=== PATIENT | male | born 1965 | race Caucasian/White ===

== ENCOUNTER 2025-04-23 19:21 | Emergency (ER) | payer OTHER, SELFPAY ==
[2025-04-23 19:38] VITALS: BP 134/88
[2025-04-23 20:02] VITALS: BP 135/89
--- NOTE | 2025-04-23 20:08 | ED.GENMED ---
History of Present Illness
General
Chief Complaint: Chest Pain
Source: patient
Exam Limitations: none
Time Seen by Provider: 04/23/25 20:07
History of Present Illness
History of Present Illness:
Patient went outside to walk his dog at about 6 or 630. Developed some upper chest discomfort. He then took trash out. Upon returning felt lightheaded. Chest discomfort remained minimal. Some heaviness of his shoulders. Total length of time
about 30 minutes. No diaphoresis no shortness of breath. Currently asymptomatic. No history of same. Patient plays golf does a fair amount of walking with his golf played golf multiple times recently without issue
Past History
Past History
ED Past Medical History: NIDDM
ED Past Surgical History: Orthopedic and Other (Posttraumatic splenectomy)
Review of Systems
Review of Systems
All Other Systems: Not applicable
Constitutional: Denies fever or chills
Respiratory: Denies cough
ABD/GI: Reports no symptoms
Phy Exam
Physical Exam
Physical Exam:
GENERAL: Alert and oriented in no apparent distress
EYE: Orbits normal.
NECK: Supple, no significant adenopathy.
ENT: Pharynx without erythema
CARDIAC: Regular rate and rhythm without any obvious murmurs.
LUNGS: Clear breath sounds,normal
ABDOMEN: Soft, without focal tenderness or distention
NEUROLOGICAL: Alert and oriented , grossly non-focal
SKIN: Warm and dry, no rash or lesion, no discoloration, skin intact.
MUSCULOSKELETAL: No edema,no deformity.Good color
PSYCH: Normal and appropriate interaction.
Scores
Heart Score for Chest Pain Patients
STEMI patient?: No
History: Moderately Suspicious
ECG: Normal
Age: >45 - <65 years
Risk Factors: 1 or 2 Risk Factors
Troponin: </= Normal Limit
Heart Score for Chest Pain Patients: 3
Heart Score Risk: 2.5% MACE over next 6 weeks
Course
Orders/Labs/Results
Orders:
Orders
04/23/25 19:23
EKG [Electrocardiogram (*1)] Urgent
Reason for Study: Chest Pain
EKG- Treatment ONCE
04/23/25 20:18
CT Chest Angio W/wo Iv Contras Urgent
Comment:
Reason For Exam: Chest pain radiating to back
Cardiac Monitoring- Treatment ONCE
IV Insert/Care/Rem.- Treatment PRN
0.9% Sodium Chloride 500 ml [Nss] 500 ml IV BOLUS
Pulse Ox/cont/shift [RESP] Stat
Quantity: 1
04/23/25 20:34
Basic Metabolic Panel Urgent
Complete Blood Count/With Diff Urgent
Troponin I Urgent
04/23/25 23:04
Electrocardiogram (*1) Stat
Reason for Study: Other
Other Reason for Exam: chest pain
EKG- Treatment ONCE
04/23/25 23:16
Troponin I Urgent
Abnormal Lab Results
04/23/25
20:34
MCV 94.8 H fL
(80.0-94.0)
MCH 33.7 H pg
(27.0-31.0)
Absolute Lymphs (auto) 4.2 H 10^3/uL
(1.2-3.4)
Absolute Monos (auto) 1.1 H 10^3/uL
(0.1-0.6)
Monocytes % 10.4 H %
(1.7-9.3)
Glucose 151 H mg/dl
(70-99)
04/23/25 20:34
04/23/25 20:34
Vital Signs
Initial and Last Documented VS:
Initial Vital Signs
Temp Pulse Resp BP Pulse Ox
97.7 F 74 20 134/88 95
04/23/25 19:38 04/23/25 19:38 04/23/25 19:38 04/23/25 19:38 04/23/25 19:38
Last Documented Vital Signs
Temp Pulse Resp BP Pulse Ox
97.8 F 74 17 139/99 94
04/23/25 20:09 04/24/25 00:00 04/24/25 00:00 04/23/25 22:00 04/24/25 00:00
MDM/Problems Addressed
Differential Diagnosis Includes:
1 episode of almost nonexertional chest discomfort with a episode of lightheadedness while walking lately to the [employer] can. Currently asymptomatic. Cardiac workup in progress. With pain rating to the upper shoulders will also get a dissection
study. Warrants repeat cardiac testing in 3 hours.
*Radiology
Radiology exam reviewed: radiology read reviewed (4.2 cm ascending aortic aneurysm.)
*Pulse Oximetry
Patient hypoxic: no (95%)
*EKG
Interpreted by ED Provider?: Yes
Interpretation: normal
Comparison EKG: no comparison EKG present
Heart Rate: 74
Rate: normal
Rhythm: sinus
Springer: normal axis
Interval: normal interval
QRS Pattern: normal QRS
Ischemia: no ischemia
*Yarn Finisher Interpretation
Rate: normal
Interpretation: normal
Heart Rate: 72
Rhythm: sinus
*Critical Care Note
Total Time (30-74mins, 75-104mins- exclusive of procedures): Not Applicable
Update Note
Update Note:
Repeat EKG no acute changes. Copy of CT report given to patient. Discussed further management inpatient versus outpatient. Joint decision of close outpatient follow-up. Aware of risk-benefit of both approaches he has had no further issues.
Repeat troponin is negative. Repeat EKG is stable. Patient has come with outpatient follow-up. He will also follow-up the CT angio with cardiology
ED Attending Note
-
Portions of this chart may have been created with voice recognition software.� Occasional wrong word or��sound alike� substitutions may have occurred due to the inherent limitations of voice recognition software.
Discharge Plan
Departure
Patient Disposition: Home (Routine Discharge)
Date of Disposition: 04/24/25
Time of Disposition: 00:11
Patient with high blood pressure during this ER visit?: Yes
Discharge Problem:
Resolved chest pain, Small anterior descending aortic aneurys
Instructions: Aortic Aneurysm (DC), Chest Pain CBC Follow Up, BLOOD PRESSURE
Referrals:
Wood Jones MD [Family Provider, Surgical]
Keegan Whalen MD [Active, Vascular Surgery]
Activity Restrictions/Additional Instructions:
As we discussed, the cardiology group should call you in the morning for very close follow-up. How however return immediately with any recurrence
Either cardiology or vascular surgery can follow-up the aneurysm
Interventions
Interventions:
*Risk Screen - Suicide Last Done: 04/23/25 19:38
*General Assessment Last Done: 04/23/25 19:38
*Neglect/Abuse Screening Last Done: 04/23/25 19:38
*ED- Fall Risk Assessment Last Done: 04/23/25 19:38
ED- Cardiac Assessment Last Done: 04/23/25 20:11
Discharge Date and Time
Print Language: POLISH
[2025-04-23 20:09] VITALS: BP 135/89; BMI 28.8
[2025-04-23] MEDS: NSS 500 IV (20:41)
[2025-04-23 21:00] VITALS: BP 132/85
[2025-04-23 21:10] LABS: Blood Urea Nitrogen 10 mg/dl (9-20); Calcium 9.5 mg/dl (8.4-10.2); Carbon Dioxide 28 mmol/L (22-30); Chloride 106 mmol/L (98-107); Estimated Creatinine Clearance 98 ml/min; Glucose 151 mg/dl (70-99); Potassium 4.3 mmol/L (3.5-5.1); Sodium 139 mmol/L (135-145); eGFR > 60.00
[2025-04-23 21:22] LABS: Troponin I 0.015 ng/ml
[2025-04-23 21:32] LABS: % Basophils 1.1 % (0-2); % Immature Granulocytes 0.4 % (0-0.5); % Monocytes 10.4 % (1.7-9.3); % Neutrophils 45.1 % (42.2-75.2); Absolute Basophils 0.1 10^3/uL (0-0.2); Absolute Eosinophils 0.3 10^3/uL (0-0.7); Absolute Lymphocytes 4.2 10^3/uL (1.2-3.4); Absolute Monocytes 1.1 10^3/uL (0.1-0.6); Absolute Neutrophils 4.7 10^3/uL (1.4-6.5); Hematocrit 45.9 % (39.0-52.0); Hemoglobin 16.3 g/dL (13.0-18.0); Mean Corp Hgb Conc. 35.5 g/dL (33.0-37.0); Mean Corpuscular Hgb 33.7 pg (27.0-31.0); Mean Corpuscular Volume 94.8 fL (80.0-94.0); Mean Platelet Volume 10.3 fL (7.4-10.4); Nucleated Red Blood Cells % 0 % (-); Platelet Count 398 10^3/uL (130-400); Red Blood Cell Count 4.84 10^6/uL (4.70-6.10); Red Cell Dist. Width 13.2 % (11.5-14.5); White Blood Cell Count 10.4 10^3/uL (4.8-10.8)
[2025-04-23 22:00] VITALS: BP 139/99
[2025-04-23 23:46] LABS: Troponin I < 0.012 ng/ml
== END 2025-04-24 00:22 | disposition home or self-care (01) ==
LOC: EMR 19:21
PROVIDERS: EMERGENCY PHYSICIAN Emergency Medicine; FAMILY PHYSICIAN Family Medicine
DX: R07.89 Other chest pain (principal); R42 Dizziness and giddiness; E11.9 Type 2 diabetes mellitus without complications
CPT/HCPCS: 99284; 96360; 96361; 71275; 80048; 84484; 85025; 93005; Q9967

== ENCOUNTER → 2025-05-08 11:37 | Outpatient (REF) | payer OTHER, SELFPAY | LOC: RCS 11:37 | PROVIDERS: ATTENDING PHYSICIAN Internal Medicine; FAMILY PHYSICIAN Family Medicine | DX: R07.9 Chest pain, unspecified (principal); E11.9 Type 2 diabetes mellitus without complications | CPT/HCPCS: 78452; 93017; A9500 ==

== ENCOUNTER → 2025-05-09 06:46 | Outpatient (REF) | payer OTHER, SELFPAY | LOC: RCS 06:46 | PROVIDERS: ATTENDING PHYSICIAN Internal Medicine; FAMILY PHYSICIAN Family Medicine | DX: R07.9 Chest pain, unspecified (principal); E11.9 Type 2 diabetes mellitus without complications | CPT/HCPCS: 93306 ==